=== PATIENT | male | born 1980 | race Caucasian/White ===

== ENCOUNTER 2016-11-04 09:40 | Emergency (ER) | payer OTHER ==
[~2016-11-04] VITALS: Ht 170.2 cm; Wt 89.0 kg
[2016-11-04 09:53] VITALS: Ht 170.2 cm; Wt 89.0 kg
[2016-11-04] MEDS ORDERED: DIPHTH/TET/ACEL PERTUSS (ADULT) 0.5 ML VIAL IM* ONE (11:30)
--- NOTE | 2016-11-04 11:48 | RADRPT ---
PROCEDURE: XR left hand. CLINICAL INDICATION: Injury from glass TECHNIQUE: Three views are available for review. COMPARISON: No prior studies are available for comparison. FINDINGS: The osseous structures are normal in mineralization, architecture and alignment. No fracture or oss eous lesion is identified. The joints are unremarkable. No erosions are identified. The soft tissue s are unremarkable. No radiopaque foreign body is identified. IMPRESSION: Unremarkable examination. RPTAT: HGDB .Tai Peters MD, MD Date Time Electronically viewed and signed by .Tai Peters MD, on 11/04/2016 11:47 .B/
[2016-11-04] MEDS ORDERED: LIDOCAINE 2% (MDV) 20 ML INJ INJ ONE (12:00)
[2016-11-04] MEDS ORDERED: IBUP400T22 PO (12:29)
[2016-11-04 12:38] VITALS: BP 132/80; PULSE 66; RESP 18; TEMP 98.2
--- NOTE | 2016-11-04 14:41 | ERD ---
ER Documentation Chief Complaint Date/Time DATE: 11/04/16 TIME: 14:37 Chief Complaint 3RD LT FINGER LACERATION FROM BROKEN GLASS HPI 36-year-old male patient with no significant past medical history presents to the ED complaining of a third left middle finger laceration from a broken glass cookie jar. Reports that this happened 2 hours ago when he was trying to grab the procedure and accidentally broke. Patient is denying any loss of sensation , loss of range of motion, fever, chills, weakness, numbness or tingling. Reports that there are probably no glass foreign bodies. States that he is not up-to-date with his tetanus vaccine. ROS All systems reviewed and are negative except as per history of present illness. Allergies Allergies: Coded Allergies: No Known Allergy (Unverified , 11/04/16) PMhx/Soc History of Surgery: Yes (Appendectomy 2001) Anesthesia Reaction: No Hx Neurological Disorder: No Hx Respiratory Disorders: No Hx Cardiac Disorders: No Hx Psychiatric Problems: No Hx Miscellaneous Medical Probl: No Hx Alcohol Use: Yes (Social) Hx Substance Use: No Hx Tobacco Use: No Smoking Status: Never smoker Physical Exam Vitals Vital Signs Date Time Temp Pulse Resp B/P Pulse Ox O2 Delivery O2 Flow Rate FiO2 11/04/16 12:38 98.2 66 18 132/80 100 Room Air 11/04/16 09:53 99.1 101 18 140/86 100 Physical Exam Const: [id number], well-nourished. In no acute distress. Head: Atraumatic, normocephalic Eyes: Normal Conjunctiva without injection ENT: Normal external ear, nose and mouth. Neck: Full range of motion. No meningismus. Resp: Clear to auscultation bilaterally. No wheezing, rhonchi, rales, or crackles. No accessory muscle use. No retractions. Cardio: Regular rate and rhythm, no murmurs Skin: No petechiae or rashes Back: No midline tenderness. No CVA tenderness. Ext: No cyanosis, or edema. Cap refill less than 2 seconds. Distal pulses intact bilaterally. 2.5 cm laceration noted on the volar aspect of patient's DIP with no surrounding erythema, edema, purulent discharge. Minimal bleeding noted. Slightly edematous. Neur: Awake and alert. Normal gait and coordination. Muscle strength 5/5. Sensation intact bilaterally. Psych: Normal Mood and Affect Results 24 hrs Current Medications Medications (Trade) Dose Ordered Sig/Lydia Route PRN Reason Start Time Stop Time Status Last Admin Dose Admin Diphtheria/ Tetanus/Acell Pertussis (Adacel) 0.5 ml ONCE ONCE IM* 11/04/16 11:30 11/04/16 11:31 DC 11/04/16 11:15 Lidocaine (Xylocaine 2% (Mdv) 20 ml) 20 ml ONCE ONCE INJ 11/04/16 12:00 11/04/16 12:02 DC Procedures/MDM 36-year-old male patient with no significant past medical history presents to the ED complaining of a laceration noted on the left middle finger cut by broken glass from a cookie jar. Patient is afebrile nontoxic appearing. Patient has normal vital signs. Patient gave consent to perform laceration repair. Patient's tetanus vaccine was updated here in the ED. A left hand x- ray was ordered to further evaluate patient. Laceration Repair by me: Anesthesia: 4 cc1% lidocaine locally Location: [Left middle finger, volar aspect DIP ] Tendon/Joint/Nerves: No injury Foreign body: None detected after copious irrigation and exploration Technique: 5 5-0Simple Interrupted Sutures Complexity: No subcutaneous sutures/mucosal repair/ edge excision Post Closure Length: [2.5] cm PROCEDURE: XR left hand. CLINICAL INDICATION: Injury from glass TECHNIQUE: Three views are available for review. COMPARISON: No prior studies are available for comparison. FINDINGS: The osseous structures are normal in mineralization, architecture and alignment. No fracture or osseous lesion is identified. The joints are unremarkable. No erosions are identified. The soft tissues are unremarkable. No radiopaque foreign body is identified. IMPRESSION: Unremarkable examination. Patient's bleeding was easily controlled in the department and there is no indication of anemia. Patient is neurovascularly intact. No evidence of compartment syndrome, neurologic injury, vascular injury, open joint, tendon laceration, or foreign body. Patient is appropriate for outpatient follow up. Patient is neurovascularly intact. Patient's extremity symptoms have stabilized while they have been evaluated in the department and are appropriate for outpatient follow up. No evidence of fractures, dislocations, compartment syndrome, neurologic injury, vascular injury, open joint, open fracture, tendon laceration, septic arthritis, osteomyelitis, DVT, foreign body, or other emergent conditions. 48 hour wound check. Scar minimization instructions given. Instructed patient to return for suture removal in 7-10 days. Instructed patient to return to the ED sooner for any worsening symptoms. Follow up with primary care physician in 1-2 days. Patient's questions were answered. Patient understood and agreed with discharge plan. Departure Diagnosis: Primary Impression: Laceration of finger Encounter type: initial encounter Qualified Code: S61.219A - Laceration of finger, initial encounter Condition: Stable Patient Instructions: Laceration, Hand Referrals: [facility] YOU HAVE RECEIVED A MEDICAL SCREENING EXAM AND THE RESULTS INDICATE THAT YOU DO NOT HAVE A CONDITION THAT REQUIRES URGENT TREATMENT IN THE EMERGENCY DEPARTMENT. FURTHER EVALUATION AND TREATMENT OF YOUR CONDITION CAN WAIT UNTIL YOU ARE SEEN IN YOUR DOCTORS OFFICE WITHIN THE NEXT 1-2 DAYS. IT IS YOUR RESPONSIBILITY TO MAKE AN APPOINTMENT FOR FOLOW-UP CARE. IF YOU HAVE A PRIMARY DOCTOR --you should call your primary doctor and schedule an appointment IF YOU DO NOT HAVE A PRIMARY DOCTOR YOU CAN CALL OUR PHYSICIAN REFERRAL HOTLINE AT IF YOU CAN NOT AFFORD TO SEE A PHYSICIAN YOU CAN CHOSE FROM THE FOLLOWING [facility] [address] [facility]. [facility] [address] [facility] [facility] [address] [facility] [facility] [address] [facility]. [facility] [address] [facility]. [facility]. [address] [facility]. [facility] YOU HAVE RECEIVED A MEDICAL SCREENING EXAM AND THE RESULTS INDICATE THAT YOU DO NOT HAVE A CONDITION THAT REQUIRES URGENT TREATMENT IN THE EMERGENCY DEPARTMENT. FURTHER EVALUATION AND TREATMENT OF YOUR CONDITION CAN WAIT UNTIL YOU ARE SEEN IN YOUR DOCTORS OFFICE WITHIN THE NEXT 1-2 DAYS. IT IS YOUR RESPONSIBILITY TO MAKE AN APPOINTMENT FOR FOLOW-UP CARE. IF YOU HAVE A PRIMARY DOCTOR --you should call your primary doctor and schedule and appointment IF YOU DO NOT HAVE A PRIMARY DOCTOR YOU CAN CALL OUR PHYSICIAN REFERRAL HOTLINE AT . IF YOU CAN NOT AFFORD TO SEE A PHYSICIAN YOU CAN CHOSE FROM THE FOLLOWING [facility] INSTITUTIONS: [facility] [address] [place] [address] [facility] [address] [place] [address] [facility] [address] [place] [address] [facility] Additional Instructions: Follow up in 2 days in your clinic for wound check. Follow up with your physician to remove the stitches:For Face wounds 5-7 days.For Elsewhere on the body 7-10 days. Call your primary care doctor TOMORROW for an appointment during the next 2-3 days.See the doctor sooner or return here if your condition worsens before your appointment time. LINN ARCOS PA-C Nov 04, 2016 14:41 LINN ARCOS PA-C Nov 04, 2016 14:41
== END 2016-11-04 12:40 | disposition home or self-care (01) ==
LOC: FTE 09:40
DX: S61.213A Laceration without foreign body of left middle finger without damage to nail, initial encounter (principal); W25.XXXA Contact with sharp glass, initial encounter; Y92.9 Unspecified place or not applicable; Z23 Encounter for immunization
CPT/HCPCS: 90471; 90715